=== PATIENT | male | born 1975 | race Caucasian/White ===

== ENCOUNTER 2019-01-09 11:17 | Day surgery (SDC) | payer MEDICARE ==
[~2019-01-09] VITALS: Ht 170.2 cm; Wt 102.5 kg
[2019-01-09] VITALS (14 sets, daily range): BP systolic 110–152; BP diastolic 38–103
--- OUTSIDE RECORDS SUMMARY | 2019-01-09 11:20 | XMS REPORT ---
Author Author [facility] Medical Staff Organization [facility] Address [address] [place], [place] [address] Phone [phone] Summary purpose CCDA Sent to [facility] Chief Complaint and Reason for Visit No authorized Reason for Visit (Admitting Diagnosis) is available for this visit . Problem list No authorized problems tracked for continuity of care are available for this vis it. Encounters No authorized problems tracked for encounter diagnoses are available for this vi sit. Medications No medications recorded for this patient visit Allergies, adverse reactions, alerts No allergy information is available for this patient. Immunizations No immunizations recorded for this patient visit Relevant diagnostic tests and/or laboratory data RESULTS CBC :37:00 Result Normal Range Units WBC H 11.59 4.60-10.20 x 103/uL RBC 5.80 4.04-6.13 x 106/uL Hemoglobin 17.3 12.2-18.1 g/dl Hematocrit 51.7 37.7-53.7 % MCV 89.1 80.0-97.0 FL MCH 29.8 27.0-31.2 pg MCHC 33.5 31.8-35.4 g/dl RDW 13.4 11.6-14.8 % Platelets 276 142-424 x 103/uL MPV H 12.9 9.4-12.4 FL Manual Diff Not Indicated Neutrophil % 62.1 37-80 % Neutrophils H 7.20 2.0-6.9 x 103/uL Lymphocyte % 26.3 10-50 % Lymphocytes 3.05 0.6-3.4 x 103/uL Monocyte % 8.5 0-12 % Monocytes 0.98 0.0-1.0 x 103/uL Eosinophil % 2.8 0-7 % Eosinophils 0.32 0-0.7 x 103/uL Basophil % 0.3 0-2 % Basophils 0.04 0.0-0.1 x 103/uL Chemistry Group :37:00 Result Normal Range Units Glucose H 116 70-99 mg/dl BUN 13 7-26 mg/dl Creatinine 0.8 0.6-1.3 mg/dl Sodium 137 136-145 mmol/L Potassium 4.2 3.5-5.1 mmol/L Chloride 105 98-107 mmol/L CO2 L 21 22-29 mmol/L BUN/Creatinine Ratio 16 7-25 Ratio Calcium 10.0 8.4-10.2 mg/dl Protein Total 7.5 6.4-8.3 g/dl Albumin 4.4 3.5-5.0 g/dl A/G Ratio 1.4 1.2-2.2 Ratio AST 19 5-34 U/L ALT 31 0-55 U/L ALP 79 40-150 U/L Bilirubin Total 0.6 0.2-1.2 mg/dl Osmolality 266 261-280 mOsm/kg Globulin 3.1 2.4-3.5 g/dl Triglycerides H 301 0-149 mg/dl Cholesterol H 217 0-199 mg/dl HDL 46 40-60 mg/dl LDL 111 0-130 mg/dl VLDL H 60 0-21 mg/dl TSH 1.06 0.35-4.94 uIU/mL History of procedures Procedure Code Code Type Description Date Performed Performing Physician 10372 CPT-4 COMPLETE CBC W/AUTO DIFF WBC 12-31-2015 HEYDI ROBERTSON 91094 CPT-4 COMPREHEN METABOLIC PANEL 12-31-2015 HEYDI ROBERTSON 91222 CPT-4 ASSAY THYROID STIM HORMONE 12-31-2015 HEYDI ROBERTSON 82893 CPT-4 LIPID PANEL 12-31-2015 HEYDI ROBERTSON Functional status No functional or cognitive status observations are available for this visit. Vital signs No authorized vital signs are available for this visit. Social history No Social History or smoking status observations were recorded for this visit. ( Unknown if ever smoked.) Treatment Plan No treatment plan text is available for this visit. Hospital discharge instructions No discharge instruction text is available for this visit.
--- OUTSIDE RECORDS SUMMARY | 2019-01-09 11:20 | XMS REPORT ---
Author Author [facility] Medical Staff Organization [facility] Address [address] [place], [place] [address] Phone [phone] Summary purpose CCDA Sent to [facility] Chief Complaint and Reason for Visit No [...] Relevant diagnostic tests and/or laboratory data RESULTS Chemistry Group [id number]:44:00 Result Normal Range Units Hemoglobin A1C 5.5 < 6.0 % History of procedures Procedure Code Code Type Description Date Performed Performing Physician 72795 CPT-4 GLYCOSYLATED HEMOGLOBIN TEST 03-01-2016 HEYDI ROBERTSON Functional status No functional or [...]
--- OUTSIDE RECORDS SUMMARY | 2019-01-09 11:20 | XMS REPORT | CCD ---
Author Author [facility] Organization Unknown Address [address] [place] [address] Care Team Providers Care General Office Associate Name Role Phone JERRY STEWART, SEBASTIÁN NOYOLA Attphys Allergies Allergy Code Allergy Type Reaction Status No Known Drug Allergies 0 Drug allergy Active Active Medications No Active Medications Problems Unknown or Not Available. Procedures Procedure Code Procedure Type Date Neuroplasty &/transposition ulnar nerve elbow; (-LT Left side of body) 98501 CPT 08/13/2016 Results Unknown or Not Available. Function Status Unknown or Not Available. History of Immunizations Unknown or Not Available. Plan of Treatment Unknown or Not Available. Social History Smoking Status Code Start Date End Date Current every day smoker [id number] Vital Signs Vital Sign Value Unit Date/Time Recent/Initial? Weight Measured 212 [lb_av] 08/12/2016 10:58 Initial VS Height 67 [in_i] 08/12/2016 10:58 Initial VS BMI (Body Mass Index) 33.2 kg/m2 08/12/2016 10:58 Initial VS BSA (Body Surface Area) 2.13 m2 08/12/2016 10:58 Initial VS Respiratory Rate 16 /min 08/13/2016 08:55 Initial VS Heart Rate 72 /min 08/13/2016 08:55 Initial VS O2 % BldC Oximetry 94 % 08/13/2016 08:55 Initial VS BP Systolic 125 mm[Hg] 08/13/2016 08:56 Initial VS BP Diastolic 74 mm[Hg] 08/13/2016 08:56 Initial VS Respiratory Rate 18 /min 08/13/2016 09:56 Most Recent VS BP Systolic 129 mm[Hg] 08/13/2016 10:01 Most Recent VS BP Diastolic 75 mm[Hg] 08/13/2016 10:01 Most Recent VS Heart Rate 62 /min 08/13/2016 10:01 Most Recent VS O2 % BldC Oximetry 96 % 08/13/2016 10:01 Most Recent VS Function Status Unknown or Not Available. Goals Unknown or Not Available. ASSESSMENTS Unknown or Not Available. Health Concerns Section Unknown or Not Available.
--- OUTSIDE RECORDS SUMMARY | 2019-01-09 11:20 | XMS REPORT ---
Author Author [facility] Medical Staff Organization [facility] Address [address] [place] [id number] Phone [phone] Summary purpose CCDA Sent to [facility] Chief Complaint and Reason for Visit [...] visit Relevant diagnostic tests and/or laboratory data No authorized results are available for this patient visit History of procedures Procedure Code Code Type Description Date Performed Performing Physician 63255 CPT-4 COMPREHEN METABOLIC PANEL 09-22-2016 HEYDI ROBERTSON 01215 CPT-4 LIPID PANEL 09-22-2016 HEYDI ROBERTSON Functional status No functional or [...]
--- OUTSIDE RECORDS SUMMARY | 2019-01-09 11:20 | XMS REPORT | Continuity of Care Document ---
Author Author [facility] Organization [facility] Address [address] [place] [address] Phone Unavailable Care Team Providers Care Javascript Engineer Name Role Phone LAW GEORGE DPM PCP Insurance Providers Payer Name Policy Number Subscriber Name Relationship Medicare [id number] Fritz Porras 18 Self / Same As Patient [facility] [id number] Fritz Porras 18 Self / Same As Patient Advance Directives Directive Response Recorded Date/Time Advance Directives No 09/17/15 10:36am Advance Directive on File No 09/17/15 10:36am Problems No problem information available. Medications Current Home Medications Medication Dose Units Route Directions Days/Qty Instructions Start Date Atorvastatin Calcium 80 Mg Oral Once A Day for Unk 09/15/15 Hydrocodone/Acetaminophen (Lortab 10-325 Mg Tablet) 1 Each 1 Each Oral As Needed for Pain 09/15/15 Lisinopril/Hydrochlorothiazide (Lisinopril-Hctz 20-12.5 Mg Tab) 1 Each 1 Each Oral Once A Day for Hypertension 09/15/15 Social History No social history. Hospital Discharge Instructions No hospital discharge instructions. Plan of Care Discharge Date 09/17/15 12:25pm Prescriptions See Medication Section Functional Status No functional status results. Allergies, Adverse Reactions, Alerts No known allergies. Immunizations No immunization records. Vital Signs Acute Vital Signs Vital Response Date/Time Temperature (Fahrenheit) 98.8 degrees F (97.6 - 99.5) 09/17/2015 11:32am Temperature (Calculated Celsius) 37.67084 degrees C (36.4 - 37.5) 09/17/2015 11:32am Temperature Source Temporal Artery Scan 09/17/2015 11:32am Pulse Pulse Rate (adult) 87 beats per minute (60 - 90) 09/17/2015 11:44am Oxygen Saturation Respiratory Rate 18 breaths per minute (12 - 24) 09/17/2015 11:44am O2 Sat by Pulse Oximetry 94 % (90 - 100) 09/17/2015 11:44am Blood Pressure 127/56 mm Hg 09/17/2015 11:44am Blood Pressure Mean 79 mm Hg 09/17/2015 11:44am Results No known relevant diagnostic tests, laboratory data and/or discharge summary. Procedures No known history of procedures. Encounters Encounter Location Arrival/Admit Date Discharge/Depart Date Attending Provider Departed [facility] 09/17/15 9:07am 09/17/15 12:25pm LAW GEORGE DPM
--- OUTSIDE RECORDS SUMMARY | 2019-01-09 11:20 | XMS REPORT ---
Author Author [facility] Medical Staff Organization [facility] Address [address] [place] [id number] Phone [phone] Summary purpose CCDA Sent to [facility] Chief Complaint and Reason for Visit No [...] Code Type Description Date Performed Performing Physician 75117 CPT-4 COMPREHEN METABOLIC PANEL 04-01-2017 HEYDI ROBERTSON 50112 CPT-4 LIPID PANEL 04-01-2017 HEYDI ROBERTSON Functional status No functional or [...]
--- OUTSIDE RECORDS SUMMARY | 2019-01-09 11:21 | XMS REPORT | Continuity of Care Document ---
Author Organization Unknown Address Unknown Allergies Active Description Code Type Severity Reaction Onset Reported/Identified Relationship to Patient Clinical Status Yes No Known Drug Allergies [id number] N/A N/A Yes No Known Allergies [id number] Drug Allergy Unknown N/A 09/15/2015 Medications There is no data. Problems Date Dx Coded Attending Type Code Diagnosis Diagnosed By 09/17/2015 Other E78.5 HYPERLIPIDEMIA, UNSPECIFIED 09/17/2015 Other G89.29 OTHER CHRONIC PAIN 09/17/2015 Other I10 ESSENTIAL (PRIMARY) HYPERTENSION 09/17/2015 Other M20.22 HALLUX RIGIDUS, LEFT FOOT 09/17/2015 Other M79.672 PAIN IN LEFT FOOT 12/31/2015 HEYDI FRAUSTO E78.5 Hyperlipidemia, unspecified 12/31/2015 HEYDI FRAUSTO I10 Essential (primary) hypertension 03/01/2016 HEYDI FRAUSTO R73.9 Hyperglycemia, unspecified 09/22/2016 HEYDI FRAUSTO E78.5 Hyperlipidemia, unspecified 09/28/2016 MASON UREÑA APRN Other J06.9 ACUTE UPPER RESPIRATORY INFECTION, UNSPECIFIED 09/28/2016 MASON UREÑA APRN Other K59.01 SLOW TRANSIT CONSTIPATION 09/28/2016 MASON UREÑA APRN Other R06.00 DYSPNEA, UNSPECIFIED 09/28/2016 MASON UREÑA APRN Other R06.02 SHORTNESS OF BREATH 09/28/2016 MASON UREÑA APRN Other R53.1 WEAKNESS 04/01/2017 HEYDI FRAUSTO E78.5 Hyperlipidemia, unspecified 01/30/2018 S X21028 Nicotine dependence, cigarettes, uncomplicated 01/30/2018 S I10 Essential (primary) hypertension 01/30/2018 P I200 Unstable angina 01/30/2018 S R000 Tachycardia, unspecified 01/30/2018 S R05 Cough 01/30/2018 S R110 Nausea 01/30/2018 S Z751 Person awaiting admission to adequate facility elsewhere 01/30/2018 S U52146 Other long term care pharmacist (current) drug therapy Procedures Code Description [place] [address] COMPREHEN METABOLIC PANEL HEYDI FRAUSTO 12/31/2015 70487 LIPID PANEL HEYDI FRAUSTO 12/31/2015 86819 ASSAY THYROID STIM HORMONE HEYDI FRAUSTO 12/31/2015 24997 COMPLETE CBC W/AUTO DIFF WBC HEYDI FRAUSTO 12/31/2015 25200 GLYCOSYLATED HEMOGLOBIN TEST HEYDI FRAUSTO 03/01/2016 84202 COMPREHEN METABOLIC PANEL HEYDI FRAUSTO 09/22/2016 38945 LIPID PANEL HEYDI FRAUSTO 09/22/2016 95848 COMPREHEN METABOLIC PANEL HEYDI FRAUSTO 04/01/2017 64166 LIPID PANEL HEYDI FRAUSTO 04/01/2017 Results Test Result Range COMPLETE BLOOD COUNT - 12/31/15 14:17 Platelet 276 10^3u 142-424 MPV 12.9 FL 9.4-12.4 Clayton # 0.98 10^3u 0.0-1.0 RBC 5.80 10^6u 4.04-6.13 [place] % 8.5 % 0-12 RDW 13.4 % 11.6-14.8 Neut # 7.20 10^3u 2.0-6.9 Neut % 62.1 % 37-80 WBC 11.59 10^3u 4.60-10.20 MCV 89.1 FL 80.0-97.0 Baso # 0.04 10^3u 0.0-0.1 Baso % 0.3 % 0-2 Eos # 0.32 10^3u 0-0.7 Eos % 2.8 % 0-7 Lymph % 26.3 % 10-50 MCHC 33.5 G/DL 31.8-35.4 MCH 29.8 PG 27.0-31.2 Lymph # 3.05 10^3u 0.6-3.4 HGB 17.3 G/DL 12.2-18.1 HCT 51.7 % 37.7-53.7 CMP - 12/31/15 16:44 Osmo Calculated 266 MOSM 261-280 Sodium 137 MMOLL 136-145 T. Protein 7.5 G/DL 6.4-8.3 Potassium 4.2 MMOLL 3.5-5.1 T Bili 0.6 MG/DL 0.2-1.2 Calcium 10.0 MG/DL 8.4-10.2 BUN 13 MG/DL 7-26 Chloride 105 MMOLL 98-107 AST 19 U/L 5-34 ALT 31 U/L 0-55 Albumin 4.4 G/DL 3.5-5.0 A/G Ratio 1.4 RATIO 1.2-2.2 Bun/Creat 16 RATIO 7-25 Alk Phos 79 U/L 40-150 CO2 21 MMOLL 22-29 Glucose 116 MG/DL 70-99 Globulin 3.1 G/DL 2.4-3.5 Creatinine 0.8 MG/DL 0.6-1.3 TSH - 12/31/15 16:44 TSH 1.06 UIUML 0.35-4.94 Lipid Profile - 12/31/15 16:44 HDL 46 MG/DL 40-60 VLDL 60 MG/DL 0-21 Triglyceride 301 MG/DL 0-149 Cholesterol 217 MG/DL 0-199 LDL Calculated 111 MG/DL 0-130 Hgb A1c - 03/01/16 13:21 Hgb A1c 5.5 % < 6.0 Encounters ACCT No. Visit Date/Time Discharge Status Pt. Type Provider Facility Loc./Unit Complaint [id number] 04/01/2017 13:26:00 04/01/2017 13:26:00 DIS Outpatient [facility] LAB [id number] 09/22/2016 12:33:00 09/22/2016 12:33:00 DIS Outpatient [facility] LAB [id number] 03/01/2016 12:25:00 03/01/2016 12:25:00 DIS Outpatient [facility] OTHER [id number] 12/31/2015 13:23:00 12/31/2015 13:23:00 DIS Outpatient [facility] OTHER [id number] 12/20/2018 08:43:33 Document Registration [id number] 12/20/2018 08:24:09 Document Registration [id number] 04/20/2018 10:11:21 Document Registration [id number] 04/20/2018 10:05:50 Document Registration [id number] 02/12/2018 17:22:30 Document Registration [id number] 02/12/2018 17:15:22 Document Registration [id number] 01/30/2018 19:36:40 Document Registration [id number] 01/30/2018 19:25:33 Document Registration [id number] 01/26/2018 10:58:30 Document Registration [id number] 01/26/2018 10:37:18 Document Registration [id number] 09/28/2016 10:35:00 09/28/2016 12:23:00 DIS Emergency MASON UREÑA [facility] ER SHORTNESS OF BREATH [id number] 09/17/2015 09:07:00 Document Registration [id number] 05/17/2013 10:05:00 05/17/2013 23:59:59 CLS Outpatient CRISTI SANCHEZ DDS [id number] 10/05/2016 02:55:43 ACT Document Registration [id number] 02/16/2018 13:45:13 02/16/2018 23:59:59 CLS Outpatient Gee Baxter [id number] 02/10/2018 12:46:39 02/10/2018 23:59:59 CLS Outpatient Gee Baxter [id number] 10/14/2016 14:38:48 10/14/2016 23:59:59 CLS Outpatient Gee Baxter
--- OUTSIDE RECORDS SUMMARY | 2019-01-09 11:21 | XMS REPORT | Continuity of Care Document ---
Author Author [facility] Organization [facility] Address [address] [place] [address] Phone Unavailable Care Team Providers Care Stone Driller Helper Name Role Phone HEYDI ROBERTSON APRN PCP Insurance Providers Payer Name Policy Number Subscriber Name Relationship Medicare [id number] Stefany Mendez 18 Self / Same As Patient [employer] [address] [id number] Stefany Mendez 18 Self / Same As Patient Advance Directives Directive Response Recorded Date/Time Advance Directives No 09/17/15 10:36am Advance Directive on File No 09/28/16 10:19am Durable POA for HC No 09/28/16 10:19am Power of Diesel Engine Pipe Fitter No 09/28/16 10:19am Organ Donor No 09/28/16 10:19am Living Will No 09/28/16 10:19am Chief Complaint and Reason for Visit Chief Complaint Dyspnea/Respdistress Reason for Visit [id number] Problems Active Problems Medical Problem Onset Date Status Constipation by delayed colonic transit Unknown Acute Dyspnea, unspecified Unknown Acute Upper respiratory infection, viral Unknown Acute Weakness generalized Unknown Acute Medications Current Home Medications Medication Dose Units Route Directions Days/Qty Instructions Start Date Hydrocodone/Acetaminophen 1 Each 1 Each Oral As Needed for Pain 09/15/15 Lisinopril/Hydrochlorothiazide 1 Each 1 Each Oral Twice A Day for Hypertension 09/15/15 Past Home Medications Medication Directions Ordered Status Atorvastatin Calcium 80 Mg Tablet, 80 Mg Oral Once A Day for Unk 09/15/15 Discontinued Social History Social History Problem Response Recorded Date/Time Alcohol Use none 09/28/2016 10:22am Drug Use none 09/28/2016 10:22am Smoking Status Current every day smoker 09/28/2016 12:21pm Smoked in the last 12 months? Yes 09/28/2016 12:21pm Do you dip or chew tobacco? No 09/28/2016 12:21pm Approx how many cigs per day? 20 09/28/2016 12:21pm Level of Dependence High 09/28/2016 12:21pm Former smoker, last day smoked? t 09/28/2016 12:21pm Query Response Start Date Stop Date Smoking Status Current every day smoker 09/28/2016 Hospital Discharge Instructions No hospital discharge instructions. Plan of Care Discharge Date 09/28/16 12:23pm Disposition 01 D/C HOME Condition at Discharge Stable and Improved Instructions/Education Provided Constipation (ED) Viral Syndrome (ED) Dyspnea (ED) Prescriptions See Medication Section Referrals HEYDI ROBERTSON APRN - Additional Instructions/Education Home to rest today. While increased activity will help with your underlying constipation-don't overdue it if you feel short of breath or dizzy Increase the amount of oral fluids that you drink to help prevent dehydration and to decrease constipation Continue with your home medications Call to make an appointment with [facility] for f/u as needed Functional Status Query Response Date Recorded Activities of Daily Living Performs w/o Assistance September 28, 2016 10:20am Cognitive Function Intact September 28, 2016 10:20am Allergies, Adverse Reactions, Alerts No known allergies. Immunizations No immunization records. Vital Signs Acute Vital Signs Vital Response Date/Time Temperature (Fahrenheit) 97.7 degrees F (97.6 - 99.5) 09/28/2016 12:15pm Temperature (Calculated Celsius) 36.10967 degrees C (36.4 - 37.5) 09/28/2016 12:15pm Temperature Source Temporal Artery Scan 09/28/2016 12:15pm Pulse Pulse Ox Pulse Rate (adult) 76 beats per minute (60 - 90) 09/28/2016 12:15pm Pulse Location Modifier Right 09/28/2016 12:15pm Oxygen Saturation Respiratory Rate 16 breaths per minute (12 - 24) 09/28/2016 12:15pm O2 Sat by Pulse Oximetry 95 % (90 - 100) 09/28/2016 12:15pm Blood Pressure 126/82 mm Hg 09/28/2016 12:15pm Blood Pressure Mean 97 mm Hg 09/28/2016 12:15pm Height 5 ft 7 in Weight 215 lb Body Mass Index 33.7 kg/m^2 Results Laboratory Results Test Name Result Units Flags Reference Collection Date/Time Result Date/Time Comments White Blood Count 13.8 x10^3/uL H 4.0-11.0 09/28/2016 10:09/28/2016 10:58am Red Blood Count 5.10 10^6/uL 4.50-6.50 09/28/2016 10:09/28/2016 10:58am Hematocrit 44.9 % 40.0-54.0 09/28/2016 10:09/28/2016 10:58am Mean Corpuscular Volume 88 fl 76-96 09/28/2016 10:09/28/2016 10:58am Mean Corpuscular Hemoglobin 31.2 pg 27.0-32.0 09/28/2016 10:09/28/2016 10:58am Mean Corpuscular Hemoglobin Concent 35.4 g/dl H 31.0-35.0 09/28/2016 10:09/28/2016 10:58am Red Cell Distribution Width 12.5 % 11.0-16.0 09/28/2016 10:09/28/2016 10:58am Platelet Count 261 10^3/uL 150-400 09/28/2016 10:09/28/2016 10:58am Mean Platelet Volume 11.6 fl H 6.0-10.0 09/28/2016 10:09/28/2016 10:58am Neutrophils (%) (Auto) 63.8 % 45.0-70.0 09/28/2016 10:09/28/2016 10:58am Lymphocytes (%) (Auto) 24.8 % 20.0-40.0 09/28/2016 10:09/28/2016 10:58am Monocytes (%) (Auto) 7.8 % 3.0-10.0 09/28/2016 10:09/28/2016 10:58am Eosinophils (%) (Auto) 3.1 % 1.0-5.0 09/28/2016 10:am 09/28/2016 10:58am Basophils (%) (Auto) 0.5 % 0.0-0.5 09/28/2016 10:09/28/2016 10:58am Neutrophils # (Auto) 8.82 x10^3/uL H 2.00-7.50 09/28/2016 10:09/28/2016 10:58am Lymphocytes # (Auto) 3.43 x10^3/uL 1.50-4.00 09/28/2016 10:09/28/2016 10:58am Monocytes # (Auto) 1.08 x10^3/uL H 0.20-0.80 09/28/2016 10:09/28/2016 10:58am Eosinophils # (Auto) 0.43 x10^3/uL H 0.04-0.40 09/28/2016 10:09/28/2016 10:58am Basophils # (Auto) 0.07 x10^3/uL 0.02-0.10 09/28/2016 10:09/28/2016 10:58am Volume Urine Centrifuged 12 ML ml 09/28/2016 11:10am 09/28/2016 11:34am Test based ON 12 ml volume. Urine Color STRAW STRAW 09/28/2016 11:10am 09/28/2016 11:34am Urine Clarity CLEAR CLEAR 09/28/2016 11:10am 09/28/2016 11:34am Urine Specific [place] 1.020 1.010-1.020 09/28/2016 11:10am 09/28/2016 11:34am Urine pH 7.5 A 5.0-6.0 09/28/2016 11:10am 09/28/2016 11:34am Urine Leukocyte Esterase NEGATIVE NEGATIVE 09/28/2016 11:10am 09/28/2016 11:34am Urine Nitrite NEGATIVE NEGATIVE 09/28/2016 11:10am 09/28/2016 11:34am Urine Protein NEGATIVE NEGATIVE 09/28/2016 11:10am 09/28/2016 11:34am Urine Glucose (UA) NEGATIVE NEGATIVE 09/28/2016 11:10am 09/28/2016 11:34am Urine Ketones NEGATIVE NEGATIVE 09/28/2016 11:10a09/28/2016 11:34am Urine Urobilinogen 0.2 0.2-1.0 09/28/2016 11:09/28/2016 11:34am Urine Bilirubin NEGATIVE NEGATIVE 09/28/2016 11:10a09/28/2016 11:34am Urine Occult Blood NEGATIVE NEGATIVE 09/28/2016 11:10a09/28/2016 11:34am Urine WBC NONE #/HPF OCCASIONAL 09/28/2016 11:09/28/2016 11:34am Urine RBC NONE #/HPF OCCASIONAL 09/28/2016 11:09/28/2016 11:34am Urine Epithelial Cells NONE #/HPF OCCASIONAL 09/28/2016 11:09/28/2016 11:34am Urine Other Casts NONE #/LPF NEGATIVE 09/28/2016 11:10a09/28/2016 11:34am Urine Bacteria NONE NONE 09/28/2016 11:10a09/28/2016 11:34am Urine Other Crystals NONE NONE 09/28/2016 11:09/28/2016 11:34am Urine Mucus NONE NONE 09/28/2016 11:09/28/2016 11:34am Urine Culture Indicated NO NO 09/28/2016 11:09/28/2016 11:34am Sodium Level 137 mmol/L 137-145 09/28/2016 10:09/28/2016 11:27am Potassium Level 4.0 mmol/L 3.5-5.1 09/28/2016 10:09/28/2016 11:27am Carbon Dioxide Level 27.1 mmol/L -09/28/2016 10:09/28/2016 11:27am Anion Gap 12.9 mEq/L 8-16 09/28/2016 10:09/28/2016 11:27am Blood Urea Nitrogen 12 mg/dL 9-09/28/2016 10:09/28/2016 11:27am Creatinine 0.81 mg/dl 0.66-1.25 09/28/2016 10:09/28/2016 11:27am Est Glomerular Filtrat Rate mL/min > 90.00 09/28/2016 10:09/28/2016 11:27am GFR NORMALS: Stage I: GFR >90 Stage II GFR 60-89 Stage III GFR 30-60 Stage IV: GFR 15-29 Stage V: GFR <15 BUN/Creatinine Ratio 14.81 09/28/2016 10:09/28/2016 11:27am Glucose Level 111 mg/dL H 74-106 09/28/2016 10:09/28/2016 11:27am Calculated Osmolality 284.2 mosm/kg 273-304 09/28/2016 10:09/28/2016 11:27am Calcium Level 9.0 mg/dL 8.4-10.2 09/28/2016 10:09/28/2016 11:27am Total Bilirubin 0.4 mg/dL 0.2-1.3 09/28/2016 10:09/28/2016 11:27am Aspartate Amino Transf (AST/SGOT) 22 U/L 17-59 09/28/2016 10:09/28/2016 11:27am Alanine Aminotransferase (ALT/SGPT) 43 U/L 21-72 09/28/2016 10:09/28/2016 11:27am Alkaline Phosphatase 80 U/L 38-126 09/28/2016 10:09/28/2016 11:27am Total Protein 8.0 g/dL 6.4-8.4 09/28/2016 10:09/28/2016 11:27am Albumin 4.5 g/dL 3.4-5.5 09/28/2016 10:09/28/2016 11:27am Globulin 3.5 2.3-3.5 09/28/2016 10:09/28/2016 11:27am Albumin/Globulin Ratio 1.285 09/28/2016 10:09/28/2016 11:27am Procedures No known history of procedures. Encounters Encounter Location Arrival/Admit Date Discharge/Depart Date Attending Provider Departed Emergency Room [facility] 09/28/16 10:35am 09/28/16 12:23pm MASON UREÑA APRN Recent Diagnosis
--- OUTSIDE RECORDS SUMMARY | 2019-01-09 11:21 | XMS REPORT | Continuity of Care Document ---
Author Author [facility] Organization [facility] Address [facility] [address] [place] [address] Phone Unavailable Support Name Relationship Address Phone MARYLU TIRADO MD Caregiver [address] [place] [address] Unavailable RAMIRO MILAN Next Of Kin [address] [place], [place] [address] Insurance Providers Payer Name Policy Number Subscriber Name Relationship Medicare [id number] Stefany Porras 16 Self / Same As Patient [employer] [id number] Stefany Porras 16 Self / Same As Patient Advance Directives Directive Response Recorded Date/Time Advance Directives No 07/28/13 10:13am Living Will No 10/27/15 3:15pm Health Care Proxy No 11/05/16 9:03am Power of Brass Finisher for Health Care No 07/28/13 10:13am Organ, Tissue, or Eye Donor No 07/28/13 10:13am Do you have a signed organ donor card? No 07/28/13 10:13am Chief Complaint and Reason for Visit Chief Complaint RIB PAIN Reason for Visit [id number] Problems Active Problems Medical Problem Onset Date Status Bronchitis Unknown Acute Gastroenteritis Unknown Acute Rib contusion Unknown Acute Medications Current Home Medications Medication Dose Units Route Directions Days/Qty Instructions Start Date Naproxen 500 Mg 500 Mg Oral Twice A Day as needed for Pain 20 11/05/16 Ibuprofen (Motrin 200 Mg Tab*) 200 Mg 200 Mg Oral As Needed 11/05/16 Past Home Medications Medication Directions Ordered Status Azithromycin (Z Tito*) 250 Mg Tablet, 250 Mg Oral Daily 07/28/13 Discontinued Social History Social History Problem Response Recorded Date/Time Smoking Status Current every day smoker 07/28/2013 10:34am Tobacco Use Cigarettes 07/28/2013 10:34am Query Response Start Date Stop Date Smoking Status Current every day smoker Hospital Discharge Instructions No hospital discharge instructions. Plan of Care Discharge Date 11/05/16 10:12am Condition at Discharge Stable Instructions/Education Provided Rib Contusion (ED) Prescriptions See Medication Section Additional Instructions/Education Return for any new or concerning symptoms Functional Status Query Response Date Recorded Ryan Coma Scale Total 15 November 05, 2016 10:12am Patient Behavior Appropriate November 05, 2016 10:12am Allergies, Adverse Reactions, Alerts No known allergies. Immunizations Name Given Type Hx Diphtheria, Pertussis, Tetanus Vaccination Up To Date Historical Hx Influenza Vaccination No Historical Hx Pneumococcal Vaccination No Historical Vital Signs Acute Vital Signs Vital Response Date/Time Temperature (Fahrenheit) 98.2 degrees F (97.6 - 99.5) 11/05/2016 10:12am Temperature Source Temporal Artery 11/05/2016 10:12am Pulse Rate (adult) 73 bpm (60 - 90) 11/05/2016 10:12am Respiratory Rate 24 bpm (12 - 24) 11/05/2016 10:12am Blood Pressure 128/68 mm Hg 11/05/2016 10:12am O2 Sat by Pulse Oximetry 94 % (90 - 100) 11/05/2016 10:12am Oxygen Delivery Method 11/05/2016 10:12am Height 5 ft 7 in Weight 222 lb Body Mass Index 34.0 kg/m^2 Results No known relevant diagnostic tests, laboratory data and/or discharge summary. Procedures Procedure Status Date Provider(s) X-ray of right ribs, three or more views including chest PA view Completed 11/05/16 MARYLU TIRADO MD Encounters Encounter Location Arrival/Admit Date Discharge/Depart Date Attending Provider Departed Emergency Room [place] 11/05/16 9:02am 11/05/16 10:12am MARYLU TIRADO MD Recent Diagnosis
[2019-01-09] MEDS ORDERED: NS IV 1000 ML 1,000 ML ONE (11:49)
[2019-01-09] MEDS ORDERED: HEParin (CATH LAB) 2,000 ML IV ONE (11:49)
[2019-01-09] MEDS ORDERED: LIDOCAINE 1% INJ 20 ML 20 ML VIAL ONE (11:49)
[2019-01-09] MEDS ORDERED: NS IV 1000 ML 1,000 ML IV SCH (12:00)
[2019-01-09] MEDS: NS IV 1000 ML 1,000 ML IV SCH ×3 (12:10→22:11)
[2019-01-09 12:15] LABS: HEMOGLOBIN 15.7 G/DL (13.3-17.7); MEAN PLATELET VOLUME 11.6 FL (7.4-10.4); RED CELL DISTRIBUTION WIDTH 12.7 % (10.0-14.5)
[2019-01-09 12:27] LABS: INR 0.9 (0.8-1.4); PROTHROMBIN TIME PATIENT 12.7 SEC (12.2-14.7)
[2019-01-09 12:32] LABS: ALANINE AMINOTRANSFERASE 30 U/L (0-55); ALKALINE PHOSPHATASE 91 U/L (40-136); BILIRUBIN,TOTAL 0.8 MG/DL (0.1-1.0); BUN/CREATININE RATIO 16; CALCIUM 9.9 MG/DL (8.5-10.1); CARBON DIOXIDE 29 MMOL/L (21-32); CHLORIDE 101 MMOL/L (98-107); CHOLESTEROL 109 MG/DL (< 200); CREATININE SERUM 0.96 MG/DL (0.60-1.30); GFR ESTIMATED > 60; GLUCOSE 101 MG/DL (70-105); HDL CHOLESTEROL 35 MG/DL (40-60); POTASSIUM 4.3 MMOL/L (3.6-5.0); SODIUM 141 MMOL/L (135-145); TRIGLYCERIDES 151 MG/DL (<150); VLDL CHOLESTEROL 30 MG/DL (5-40)
[2019-01-09] MEDS ORDERED: METO100T12 PO (12:37)
[2019-01-09] MEDS ORDERED: CETI10TA17 PO (12:37)
[2019-01-09] MEDS ORDERED: ONDA4TAB11 PO (12:37)
[2019-01-09] MEDS ORDERED: TIOT4MIS2 IH (12:37)
[2019-01-09] MEDS ORDERED: LOSA50TA63 PO (12:37)
[2019-01-09] MEDS ORDERED: RT-ALBUINH IH (12:37)
[2019-01-09] MEDS ORDERED: FURO40TA4 PO (12:37)
[2019-01-09] MEDS ORDERED: NITR0.4T39 SL (12:37)
[2019-01-09] MEDS ORDERED: HYDR-4196 PO (12:37)
[2019-01-09] MEDS ORDERED: ALPR2TAB6 PO (12:37)
[2019-01-09] MEDS ORDERED: ASPI-586 PO (12:37)
[2019-01-09] MEDS ORDERED: FLUT50DI IH (12:37)
[2019-01-09] MEDS ORDERED: CLOP75TA28 PO (12:37)
[2019-01-09] MEDS ORDERED: ATOR80TA76 PO (12:37)
[2019-01-09] MEDS ORDERED: MIDAZOLAM 5 MG/5 ML (VERSED) VIAL ONE (14:03)
[2019-01-09] MEDS ORDERED: fentaNYL INJECTION 100 MCG/2 ML AMP ONE (14:03)
--- NOTE | 2019-01-09 14:47 | Cardiac Procedure Note-CS/ASA ---
Pre-Procedure Note Pre-Op Procedure Note H&P Reviewed The H&P was reviewed, patient examined and no changes noted. Date H&P Reviewed: Jan 09, 2019 Time H&P Reviewed: 14:47 Conscious Sedation Pre-Proced Time 14:47 ASA Score 3 For ASA 3 and 4: Consider anesthesia and medical clearance. Also, for patients with a history of failed moderate sedation consider anesthesia. Airway Lungs Heart ASA score ASA 1: a normal healthy patient ASA 2: a patient with a mild systemic disease (mid diabetes, controlled hypertension, obesity ASA 3: a patient with a severe systemic disease that limits activity (angina, COPD, prior Myocardial infarction) ASA 4: a patient with an incapacitating disease that is a constant threat to life (CHF, renal failure) ASA 5: a moribund patient not expected to survive 24 hrs. (ruptured aneurysm) ASA 6: a declared brain- patient whose organs are being harvested. For emergent operations, add the letter E after the classification Mallampati Classification Grade 2 Sedation Plan Analgesia, Amnesia, Plan communicated to team members, Discussed options with patient/fam, Discussed risks with patient/fam The patient is an appropriate candidate to undergo the planned procedure, sedation, and anesthesia. The patient immediately re-assessed prior to indication. COMFORT CARDENAS MD FACP FAC CCDS Jan 09, 2019 14:47
[2019-01-09] MEDS ORDERED: HEParin 1000 UNIT/ML (10ML VIAL) FOR BOLUS ONE (14:55)
[2019-01-09] MEDS ORDERED: EPTIFIBATIDE BOLUS 20 ML IV ONE (15:03)
[2019-01-09] MEDS ORDERED: NITRO DRIP 25000 MCG/D5W 250 ML IV ONE (15:03)
[2019-01-09] MEDS ORDERED: ASPIRIN 81 MG CHEW (CHILDREN'S ASA) ONE (15:26)
[2019-01-09] MEDS ORDERED: CLOPIDOGREL 300 MG (PLAVIX) TABLET PO ONE (15:26)
[2019-01-09] MEDS ORDERED: PATIENT MAY USE OWN MEDS, ALL PO SCH (16:00)
[2019-01-09] MEDS ORDERED: ONDANSETRON 4 MG (ZOFRAN) ORAL DISSOLVE TAB PO PRN (16:00)
[2019-01-09] MEDS ORDERED: NITROGLYCERIN 0.4 MG SL TABS BTL 25'S SL PRN (16:00)
[2019-01-09] MEDS ORDERED: NON-FORMULARY MEDICATION 1 EA EA (Hydrocodone/Acetaminophen (Norco 10-325 Tablet) 1 TAB) PO PRN (16:00)
--- NOTE | 2019-01-09 16:00 | NUR ---
STEFANY PORRAS admitted to room , with an admitting diagnosis of s/p heart cath, on 01/09/19 from slab lifting engineer via bed, accompanied by staff.STEFANY PORRAS introduced to surroundings, call light, bed controls, phone, TV, temperature control, lights, meal times, smoking policy, visitor policy, side rail policy, bathrooms and showers. Patient Rights given to patient in the handbook. STEFANY PORRAS verbalizes understanding that [facility] is not responsible for the loss or damage to any personal effects or valuables that are kept in the patients posession during their hospitalization. The following Patient Care Plans were discussed with the pt: Discharge Planning, pain,high risk bleeding , and fluid volume deficit. STEFANY PORRAS verbalizes understanding of Interdisciplinary Patient Education. Patient and family were informed about the Rapid Response Team and its purpose.
[2019-01-09] MEDS ORDERED: HYDROcodone/APAP 10 MG/325 MG (LORTAB) TAB PO PRN (16:45)
--- NOTE | 2019-01-09 17:51 | CARDIAC CATHETERIZATION ---
DATE OF SERVICE: 01/09/2019 CARDIAC CATHETERIZATION AND CORONARY INTERVENTION REPORT INDICATIONS: The patient is a 43-year-old man with known coronary artery disease, who has had coronary artery bypass surgery consisting of left internal mammary artery graft to left anterior descending and right internal mammary artery graft to right coronary at [facility] in [place], [place] in 2018. He has had recurrence of angina and these symptoms have been progressive. Cardiac catheterization was carried out today after having obtained an informed consent. Informed consent was also obtained for ad hoc coronary intervention, if needed. DESCRIPTION OF PROCEDURE: He was brought to the cardiac catheterization laboratory in a fasting state. Right groin was prepared and draped in usual sterile fashion. Lidocaine 1% was used for local anesthesia. Modified Seldinger technique was used to advance a 5-American sheath in the right femoral artery, 5-American JL4 catheter for left coronary angiography, 5-American JR4 catheter for right coronary angiography. A 5-American pigtail catheter was used for left heart catheterization and left ventricular angiography. A 5-American JR4 catheter was used for angiography of the right internal mammary artery graft to the right coronary artery. A 5-American JR4 catheter was used for angiography of the left internal mammary artery graft to left anterior descending artery. A 5-American pigtail catheter was used for aortic arch angiography. Aortic arch angiography was performed to delineate the locations of the neck arteries to enable advancement of the wires and catheters for engagement of the mammary arteries that have been used as bypass graft. PERCUTANEOUS INTERVENTION OF THE RIGHT CORONARY ARTERY: We carried out percutaneous intervention of distal right coronary artery where the patient was exhibiting approximately 90% stenosis. This procedure was performed because of the right internal mammary artery graft to the right coronary artery is occluded. We exchanged the sheath over a wire for 6-American sheath. We gave 6000 units of intravenous heparin. We gave a double bolus of Integrilin. We used a 6-American JR4 guide catheter with side holes. We advanced a BMW wire across the lesion and placed the tip of the wire into the posterior descending branch of the right coronary artery. We carried out a balloon angioplasty at the site of the lesion with Emerge 2.5 x 20 mm balloon. This was removed and we then stented this lesion with Xience Melissa 2.75 x 23 mm stent that was deployed at 12 atmospheres. Subsequent angiography revealed 0% residual stenosis and flow throughout the vessel is normal. The right coronary artery appeared quite prone to spasm and that was the reason we used a sidehole catheter and we also used 50 mcg of intracoronary nitroglycerin to relieve spasm during the procedure. Overall, he tolerated the procedure well. Angiography of the right femoral artery was carried out through the sheath at the beginning of the procedure. At the end of the procedure, Mynx was used to achieve hemostasis. HEMODYNAMICS: Left ventricular end-diastolic pressure following coronary angiography was 10 mmHg. There was no significant pressure gradient on pullback across the aortic valve. Ascending aortic pressure was 107/68 with a mean of 86 mmHg. LEFT VENTRICULAR ANGIOGRAPHY: Left ventricular angiography was carried out in the right anterior oblique projection. Global left ventricular systolic function is normal. No regional wall motion abnormalities seen in this view. Left ventricular ejection fraction is approximately 65%. AORTIC ARCH ANGIOGRAPHY: Aortic arch angiography did not indicate any significant thoracic aortic aneurysm or dissection, to the extent visualized. The neck vessels were visualized. These appear normal in their proximal portions. This angiogram helped with advancement of the wires and catheters for engagement of the internal mammary artery grafts. CORONARY ANGIOGRAPHY AND KING AND SHADY ANGIOGRAPHY: Left main coronary artery does not exhibit significant disease. Left anterior descending artery has 90% ostial, proximal, mid vessel stenoses. The distal left anterior descending artery is protected by a patent left internal mammary artery graft to left anterior descending artery. A ramus intermedius artery has moderate proximal and ostial disease. This is a small caliber vessel. Left circumflex artery is patent and does not exhibit significant disease. Right coronary artery is large and dominant and had 40% mid vessel stenosis and approximately 80-90% distal vessel stenosis. The distal vessel stenosis was stented with Xience Melissa 2.75 x 23 mm stent with reduction of stenosis to 0% residual. KING is patent. SHADY is occluded in mid vessel CONCLUSIONS: 1. Coronary artery disease primarily consisting of severe ostial, proximal and mid vessel disease of the left anterior descending artery. Left anterior descending is protected by a patent left internal mammary artery graft to the distal left anterior descending. The right coronary artery was exhibiting 80-90% distal vessel stenosis and the right internal mammary artery graft to the right coronary artery is occluded. The distal right coronary artery lesion was stented with Xience Melissa 2.75 x 23 mm stent with reduction of stenosis to 0% residual. 2. Patent left internal mammary artery graft to distal left anterior descending artery. 3. Occluded right internal mammary artery graft to right coronary artery. 4. Normal global left ventricular systolic function with ejection fraction approximately 65%. 5. Normal left ventricular end-diastolic pressure. DISCUSSION AND RECOMMENDATIONS: Therapy is being continued with dual antiplatelet therapy that includes aspirin and clopidogrel. Statin therapy will be continued. He is being hospitalized for observation after today's procedure. Job ID: [id number] DocumentID: [id number] Dictated Date: 01/09/2019 15:42:27 Seasonal Retail Merchandiser Date: 01/09/2019 17:51:16 Dictated By: COMFORT CARDENAS MD, MA, FACP, FACC, MTDD
[2019-01-09] MEDS: RT-ALBUTEROL SULF 2.5 MG/3 ML PRE-MIX VIAL IH SCH ×2 (18:48→22:12)
[2019-01-09] MEDS ORDERED: NON-FORMULARY MEDICATION 1 EA EA (Alprazolam 2 MG) PO SCH (21:00)
[2019-01-09] MEDS ORDERED: ALPRAZolam 1 MG (XANAX) TAB PO SCH (21:00)
[2019-01-09] MEDS ORDERED: NON-FORMULARY MEDICATION 1 EA EA (Metoprolol Tartrate 100 MG) PO SCH (21:00)
[2019-01-09] MEDS ORDERED: ATORVASTATIN 80 MG (LIPITOR) TABLET PO SCH (21:00)
[2019-01-09] MEDS ORDERED: RT-FLUTICASONE 110 MCG (FLOVENT) PER PUFF IH SCH (21:00)
[2019-01-09] MEDS: meTOprolol TARTRATE 50 MG (LOPRESSOR) TAB PO SCH (22:11)
[2019-01-10] VITALS: BP_SYST 102; BP_SYST 95; BP_DIAS 22; BP_DIAS 58
[2019-01-10] MEDS: RT-ALBUTEROL SULF 2.5 MG/3 ML PRE-MIX VIAL IH SCH ×3 (02:36→10:13)
[2019-01-10 03:31] LABS: HEMOGLOBIN 13.2 G/DL (13.3-17.7); MEAN PLATELET VOLUME 11.8 FL (7.4-10.4); RED CELL DISTRIBUTION WIDTH 12.3 % (10.0-14.5); WHITE BLOOD COUNT 9.2 10^3/uL (4.3-11.0)
[2019-01-10 03:48] LABS: BUN/CREATININE RATIO 18; CALCIUM 8.8 MG/DL (8.5-10.1); CARBON DIOXIDE 24 MMOL/L (21-32); CHLORIDE 108 MMOL/L (98-107); CREATININE SERUM 0.83 MG/DL (0.60-1.30); GFR ESTIMATED > 60; GLUCOSE 110 MG/DL (70-105); POTASSIUM 3.8 MMOL/L (3.6-5.0); SODIUM 140 MMOL/L (135-145)
[2019-01-10 04:00] VITALS: BP 96/57
[2019-01-10] MEDS: NS IV 1000 ML 1,000 ML IV SCH (04:04)
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
[2019-01-10 08:00] VITALS: BP 115/53
[2019-01-10] MEDS ORDERED: UMECLIDINIUM BROMIDE (INCRUSE ELLIPTA) 7'S IH SCH (08:00)
[2019-01-10] MEDS: meTOprolol TARTRATE 50 MG (LOPRESSOR) TAB PO SCH (08:46)
[2019-01-10] MEDS ORDERED: NON-FORMULARY MEDICATION 1 EA EA (Cetirizine HCl 10 MG) PO SCH (09:00)
[2019-01-10] MEDS ORDERED: LOSARTAN 50 MG (COZAAR) TAB PO SCH (09:00)
[2019-01-10] MEDS ORDERED: NON-FORMULARY MEDICATION 1 EA EA (Losartan Potassium 50 MG) PO SCH (09:00)
[2019-01-10] MEDS ORDERED: NON-FORMULARY MEDICATION 1 EA EA (Tiotropium Bromide (Spiriva Respimat 2.5MCG/ACTUATION) 2 IH SCH (09:00)
[2019-01-10] MEDS ORDERED: ASPIRIN 81 MG CHEW (CHILDREN'S ASA) PO SCH (09:00)
[2019-01-10] MEDS ORDERED: LORATADINE (CLARITIN) 10 MG TAB PO SCH (09:00)
[2019-01-10] MEDS ORDERED: CLOPIDOGREL 75 MG (PLAVIX) TABLET PO SCH (09:00)
[2019-01-10] MEDS ORDERED: FUROSEMIDE 40 MG (LASIX) TAB PO SCH (09:00)
--- NOTE | 2019-01-10 09:40 | Discharge Inst-Cardiology ---
Discharge Inst-Cardiac Discharge Medications Continued Medications: Albuterol Sulfate (Proair Hfa) 1 Puff Puff 2 PUFF IH Q4H, PUFF 1 PUFF = 90 MCG Alprazolam (Alprazolam) 2 Mg Tablet 2 MG PO HS for 7 Days, TAB Aspirin (Aspir 81) 81 Mg Tablet.dr 81 MG PO DAILY, TAB Atorvastatin Calcium (Atorvastatin Calcium) 80 Mg Tablet 80 MG PO HS, TAB Cetirizine HCl (Cetirizine HCl) 10 Mg Tablet 10 MG PO DAILY, TAB Clopidogrel Bisulfate (Clopidogrel) 75 Mg Tablet 75 MG PO DAILY, TAB Fluticasone Propionate (Flovent Diskus 50 mcg) 1 Disk Inhp 50 MCG IH BID, PUFF Furosemide (Furosemide) 40 Mg Tablet 40 MG PO DAILY, TAB Hydrocodone/Acetaminophen ([place] 10-325 Tablet) 1 Each Tablet 1 TAB PO Q4H PRN for PAIN-MODERATE MDD 5 TABS for 7 Days, TAB Losartan Potassium (Losartan Potassium) 50 Mg Tablet 50 MG PO DAILY, TAB Metoprolol Tartrate (Metoprolol Tartrate) 100 Mg Tablet 100 MG PO BID, TAB Nitroglycerin (Nitroglycerin) 0.4 Mg Tab.subl 0.4 MG SL UD PRN for CHEST PAIN, TAB Ondansetron (Ondansetron Odt) 4 Mg Tab.rapdis 4 MG PO Q8H PRN for prn, TAB Tiotropium [place] (Spiriva Respimat 2.5MCG/ACTUATION) 4 Gm Mist.inhal 2 PUFF IH DAILY, INH Patient Instructions Patient Instructions: Please schedule follow up appointment with Dr. Calvert in one week CANDIDA POWELL Jan 10, 2019 09:40
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
--- NOTE | 2019-01-10 17:37 | NUR ---
Unable to document Patient dischage in Patient care system due to [facility] Patient care system being down. Paper charted and inserted documentation in patient chart. Provided education on stroke S/S, when to call provider, when to F/U with provider, Heart healthy diet, post-op care, restrictions, diet, medications. Groin site stable- soft and no oozing.
== END 2019-01-10 11:31 | disposition home or self-care (01) ==
LOC: CATH 11:17 → ICU 15:58 → CATH 01-10 11:31
PROVIDERS: ATTEND Internal Medicine Cardiovascular Disease
DX: I25.10 Atherosclerotic heart disease of native coronary artery without angina pectoris (principal); I10 Essential (primary) hypertension; E78.5 Hyperlipidemia, unspecified; G89.21 Chronic pain due to trauma; Z82.49 Family history of ischemic heart disease and other diseases of the circulatory system; Z87.891 Personal history of nicotine dependence; Z95.1 Presence of aortocoronary bypass graft; Z79.899 Other long term (current) drug therapy; Z79.02 Long term (current) use of antithrombotics/antiplatelets
CPT/HCPCS: 36221; 36415; 80048; 80053; 80061; 84443; 85027; 85610; 85730; 87081; 93005; 93459; 94640

== ENCOUNTER 2019-12-11 09:45 | Day surgery (SDC) | payer MEDICARE, MEDICAID ==
[~2019-12-11] VITALS: Ht 170 cm; Wt 97.0 kg
[~2019-12-11 09:45] MED LIST: ALPR2TAB6 PO; ASPI-586 PO; ATOR80TA76 PO; CETI10TA17 PO; CLOP75TA28 PO; FLUT50DI IH; FURO40TA4 PO; HYDR-4196 PO; LOSA50TA63 PO; METO100T12 PO; NITR0.4T39 SL; ONDA4TAB11 PO; RT-ALBUINH IH; TIOT4MIS2 IH
[2019-12-11] MEDS ORDERED: LIDOCAINE 1% INJ 20 ML 20 ML VIAL ONE (09:49)
[2019-12-11] MEDS ORDERED: HEParin (CATH LAB) 2,000 ML IV ONE (09:49)
[2019-12-11] MEDS ORDERED: NS IV 1000 ML 1,000 ML IV SCH ×2 (10:00→14:58)
[2019-12-11 10:22] LABS: HEMOGLOBIN 17.3 G/DL (13.3-17.7); MEAN PLATELET VOLUME 11.7 FL (7.4-10.4); RED CELL DISTRIBUTION WIDTH 13.2 % (10.0-14.5); WHITE BLOOD COUNT 17.5 10^3/uL (4.3-11.0)
[2019-12-11 10:24] VITALS: BP 162/92
[2019-12-11 10:38] LABS: INR 0.9 (0.8-1.4); PROTHROMBIN TIME PATIENT 12.5 SEC (12.2-14.7)
[2019-12-11] MEDS ORDERED: OMEP40CA27 PO (10:38)
[2019-12-11 10:45] LABS: ALANINE AMINOTRANSFERASE 31 U/L (0-55); ALBUMIN 5.3 GM/DL (3.2-4.5); ALKALINE PHOSPHATASE 84 U/L (40-136); BUN/CREATININE RATIO 13; CALCIUM 10.5 MG/DL (8.5-10.1); CARBON DIOXIDE 26 MMOL/L (21-32); CHLORIDE 105 MMOL/L (98-107); CHOLESTEROL 124 MG/DL (< 200); CREATININE SERUM 0.92 MG/DL (0.60-1.30); GFR ESTIMATED > 60; GLUCOSE 113 MG/DL (70-105); HDL CHOLESTEROL 43 MG/DL (40-60); POTASSIUM 4.2 MMOL/L (3.6-5.0); SODIUM 142 MMOL/L (135-145); TOTAL PROTEIN 8.6 GM/DL (6.4-8.2); TRIGLYCERIDES 111 MG/DL (<150); VLDL CHOLESTEROL 22 MG/DL (5-40)
[2019-12-11] MEDS ORDERED: MIDAZOLAM 5 MG/5 ML (VERSED) VIAL ONE (13:55)
[2019-12-11] MEDS ORDERED: fentaNYL INJECTION 100 MCG/2 ML AMP ONE (13:55)
--- NOTE | 2019-12-11 14:58 | Cardiac Procedure Note-CS/ASA ---
Pre-Procedure Note Pre-Op Procedure Note H&P Reviewed The H&P was reviewed, patient examined and no changes noted. Date H&P Reviewed: December 11, 2019 Time H&P Reviewed: 14:00 Conscious Sedation Pre-Proced Time 14:00 ASA Score 3 For ASA 3 and 4: Consider anesthesia and medical clearance. Also, for patients with a history of failed moderate sedation consider anesthesia. Airway Lungs Heart ASA score ASA 1: a normal healthy patient ASA 2: a patient with a mild systemic disease (mid diabetes, controlled hypertension, obesity ASA 3: a patient with a severe systemic disease that limits activity (angina, COPD, prior Myocardial infarction) ASA 4: a patient with an incapacitating disease that is a constant threat to life (CHF, renal failure) ASA 5: a moribund patient not expected to survive 24 hrs. (ruptured aneurysm) ASA 6: a declared brain- patient whose organs are being harvested. For emergent operations, add the letter E after the classification Mallampati Classification Grade 2 Sedation Plan Analgesia, Amnesia, Plan communicated to team members, Discussed options with patient/fam, Discussed risks with patient/fam The patient is an appropriate candidate to undergo the planned procedure, sedation, and anesthesia. The patient immediately re-assessed prior to indication. COMFORT CARDENAS MD FACP FAC CCDS December 11, 2019 14:58
[2019-12-11 15:00] VITALS: BP 117/71
[2019-12-11] MEDS ORDERED: PATIENT MAY USE OWN MEDS, ALL PO SCH (15:00)
--- NOTE | 2019-12-11 15:01 | Discharge Inst-Cardiology ---
Discharge Inst-Cardiac Discharge Medications Continued Medications: Albuterol Sulfate (Proair Hfa) 1 Puff Puff 2 PUFF IH Q4H, PUFF 1 PUFF = 90 MCG Alprazolam (Alprazolam) 2 Mg Tablet 2 MG PO HS for 7 Days, TAB Aspirin (Aspir 81) 81 Mg Tablet.dr 81 MG PO DAILY, TAB Atorvastatin Calcium (Atorvastatin Calcium) 80 Mg Tablet 80 MG PO HS, TAB Cetirizine HCl (Cetirizine HCl) 10 Mg Tablet 10 MG PO DAILY, TAB Losartan Potassium (Losartan Potassium) 50 Mg Tablet 50 MG PO DAILY, TAB Metoprolol Tartrate (Metoprolol Tartrate) 100 Mg Tablet 100 MG PO BID, TAB Nitroglycerin (Nitroglycerin) 0.4 Mg Tab.subl 0.4 MG SL UD PRN for CHEST PAIN, TAB Omeprazole (Omeprazole) 40 Mg Capsule.dr 40 MG PO DAILY, CAP Ondansetron (Ondansetron Odt) 4 Mg Tab.rapdis 4 MG PO Q8H PRN for prn, TAB Tiotropium [place] (Spiriva Respimat 2.5MCG/ACTUATION) 4 Gm Mist.inhal 2 PUFF IH DAILY, INH COMFORT CARDENAS MD FACP FAC CCDS December 11, 2019 15:01
--- NOTE | 2019-12-11 15:01 | Discharge Inst-Post CATH ---
Discharge Inst-CATH/EP Post Cardiac Cath/EP D/C Inst Follow Up/Plan F/u with Dr Calvert in 2 weeks ACTIVITY * Go Home directly and rest. * Limit activity of the leg (or wrist if it was used) for 7 days including aerobics, swimming, jogging, bicycling, etc. * Restrict stair-climbing for 7 days if possible, if not, climb up with your n on-cath leg, then bring together on the same step. * Avoid lifting, pushing, pulling or excessive movement of the affected ex tremity for 7 days. * Customary sexual activity may be resumed after 2 days-use caution not to use a position that strains or causes pain to the affected extremity. * No driving for 24 hours. * NO SMOKING. * Avoid straining for bowel movements for 7 days. * Gentle walking on level ground is allowed. * Returning to work will depend on the type of procedure and the results. Your doctor will discuss this with you. CALL YOUR DOCTOR FOR ANY OF THE FOLLOWING: *If bleeding from the puncture site occurs- Apply gentle pressure to site with clean cloth and call your doctor or EMS. * If a knot or lump forms under the skin, increases in size, or causes pain. * If bruising appears to be worsening or moving further down your leg instead of disappearing. * Temperature above 101 F. CARE OF YOUR GROIN INCISION; * Bruising or purple discoloration of the skin near the puncture site is common. * You may shower only, no bathtub bathing for 5 days. Be careful to avoid slipping as your leg may feel stiff. * If a closure device was used on your femoral artery, please see the attached guide regarding care of the device and your leg. * Leave dressing on FOR 24 hours. CARE OF YOUR WRIST INCISION; * Bruising or purple discoloration of the skin near the puncture site is common. * You may shower. * DO NOT submerge wrist. * Leave dressing on FOR 24 hours. COMFORT CALVERT MD FACP FAC CCDS December 11, 2019 15:01
--- NOTE | 2019-12-11 15:16 | CARDIAC CATHETERIZATION ---
DATE OF SERVICE: 12/11/2019 CARDIAC CATHETERIZATION REPORT The patient is a 44-year-old man who is known to have coronary artery disease and has had coronary artery bypass surgery. He comes in with chest discomfort and the symptoms are suggestive of recurrent angina. Because of symptoms that were suggesting unstable angina, cardiac catheterization was carried out today after having obtained an informed consent. DESCRIPTION OF PROCEDURE: He was brought to the cardiac catheterization laboratory in a fasting state. Right groin was prepared and draped in the usual sterile fashion. Lidocaine 1% was used for local anesthesia. Modified Seldinger technique was used to advance a 5-Armenian sheath into right femoral artery. A 5-Armenian JL4 catheter was used for left coronary angiography, 5-Armenian JR4 catheter was used for right coronary angiography, 5-Armenian pigtail catheter was used for left heart catheterization and left ventricular angiography. At the end of the procedure, angiography of the right femoral artery was carried out through the sheath and Mynx was used to achieve hemostasis. He tolerated the procedure well. HEMODYNAMICS: Left ventricular end-diastolic pressure following coronary angiography was 13 mmHg. There is no significant pressure gradient on pullback across the aortic valve. Ascending aortic pressure was 108/68 with a mean of 77 mmHg. CORONARY ANGIOGRAPHY: Coronary calcification is seen. Left main coronary artery is free of significant disease. Left anterior descending artery had 90% ostial and 80% mid vessel stenosis. Left circumflex artery and a ramus intermedius artery do not exhibit significant disease. Right coronary artery has diffuse mild plaques. There is a patent stent in its distal portion. LEFT INTERNAL MAMMARY GRAFT ANGIOGRAPHY: Left internal mammary artery graft to the distal left anterior descending artery is widely patent and free of significant disease and has a good distal runoff. RIGHT INTERNAL MAMMARY ARTERY GRAFT ANGIOGRAPHY: Right internal mammary artery graft angiography was not performed because it has previously been demonstrated to be occluded. LEFT VENTRICULAR ANGIOGRAPHY: Left ventricular angiography was carried out in left anterior oblique projection. Global left ventricular systolic function normal. No regional wall motion abnormalities seen. Left ventricular ejection fraction is 60% to 65%. CONCLUSIONS: 1. Coronary artery disease. Primarily consisting of severe ostial and mid vessel disease of the left anterior descending with a patent left internal mammary artery graft to distal left anterior descending. The right coronary artery has a patent stent in its distal portion. 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 2. Normal global left ventricular systolic function with ejection fraction of 60% to 65%. 3. Left ventricular end-diastolic pressure at the top limit of normal. DISCUSSION AND RECOMMENDATIONS: Based on results of the study, it appears appropriate to continue a conservative approach. Risk factor modification was reviewed. Cardiac regimen was reviewed. Outpatient followup is advised. Job ID: [id number] DocumentID: [id number] Dictated Date: 12/11/2019 14:53:28 [employer] Date: 12/11/2019 15:15:28 Dictated By: COMFORT CARDENAS MD, MA, FACP, FACC, MTDD
[2019-12-11 16:00] VITALS: BP 115/74
[2019-12-11 17:00] VITALS: BP 127/89
[2019-12-11 18:00] VITALS: BP 91/76
[2019-12-11 19:37] VITALS: BP 127/89
== END 2019-12-11 18:30 | disposition home or self-care (01) ==
LOC: CATH 09:45 → ICU 15:32 → CATH 18:30
PROVIDERS: ATTEND Internal Medicine Cardiovascular Disease
CPT/HCPCS: 36415; 80053; 80061; 85027; 85610; 85730; 87081; 93459